=== PATIENT | female | born 1925 | race Caucasian/White ===

== ENCOUNTER 2016-08-21 17:33 | Inpatient (IN) | payer MEDICARE, BC ==
[~2016-08-21 17:33] MED LIST: AMLODIPINE BESYL5 MG PO; ASPIRIN EC81 MG PO; AVAPRO300 MG PO; CALCIUM 500 +1 EAC8 PO; CATAPRES0.2 M1 PO; CILOSTAZOL50 MG PO; CYANOCOBALAM1000 MCG PO; ELIQ PO; FISH OIL 1,2001 EAC2 PO; FISH OIL 1,2001 EAC5 PO; GENTAMICIN TOP; HYDROCODON-ACE1 EAC7 PO; KEFLEX500 MG PO; LASIX20 MG PO; LUBRICANT DRY E OP; METOPROLOL TAR100 M2 PO; MULTI VITAMIN1 EAC1 PO; REFRESH PLUS1 EACH EACH EYE; SLEEP AID25 M1 PO; TRIAMTERENE-HCT1 TAB PO; VITAMIN C1000 MG PO; ZOCOR10 MG PO
[2016-08-21] MEDS ORDERED: POTASSIUM CHLO10 ME2 PO (17:45)
[2016-08-21] MEDS ORDERED: MELATONIN1 M2 PO (17:48)
[2016-08-21 18:16] LABS: BASO % 0.5 % (0-2); BASO ABSOLUTE COUNT 0.1 tho/cmm (0.0-0.2); EOS % 0.9 % (0-7); EOSINOPHIL ABSOLUTE COUNT 0.1 tho/cmm (0.0-0.7); HCT-HEMATOCRIT 44.8 % (34.0-49.0); HGB-HEMOGLOBIN 15.6 gm/dl (12.0-15.5); IMMATURE GRANULOCYTES ABSOLUTE 0.09 tho/cmm (0-0.03); IMMATURE GRANULOCYTES PERCENT 0.6 % (0-0.3); LYMPH % 14.8 % (20-45); LYMPH ABSOLUTE COUNT 2.2 tho/cmm (0.8-4.5); MCH (MEAN CORPUSCULAR HGB) 29.6 pg (28.0-32.0); MCHC MEAN CORPUSCULAR HGB CONC 34.8 % (32.0-36.0); MEAN PLATELET VOLUME 10.4 cmc (9.4-12.4); MONO % 5.5 % (0-12); MONOCYTE ABSOLUTE COUNT 0.8 tho/cmm (0.0-1.2); NEUTROPHIL ABSOLUTE COUNT 11.8 tho/cmm (1.6-8.0); NEUTROPHIL-AUTOMATED 11.8 tho/cmm (1.6-8.0); NEUTROPHILS % 77.7 % (40-80); PLATELET COUNT 268 tho/cmm (150-450); RED BLOOD COUNT 5.27 mil/cmm (4.00-5.20); RED CELL DISTRIBUTION WIDTH 13.4 % (12.4-16.4); WHITE BLOOD COUNT 15.2 tho/cmm (4.0-10.0)
[2016-08-21 18:43] LABS: ANION GAP 12 mmol/L (0-20); BLOOD UREA NITROGEN 23 mg/dl (6-24); CALCIUM 10.3 mg/dl (8.5-10.5); CARBON DIOXIDE-VENOUS 24 mmol/L (22-32); CHLORIDE 103 mmol/l (96-110); CREATININE 1.02 mg/dl (0.50-1.10); GLUCOSE 166 mg/dL (70-110); SODIUM 135 mmol/L (135-145); eGFR VALUE FOR BLACK 56 mL/Min
[2016-08-21 18:49] LABS: POTASSIUM 4.2 mmol/L (3.7-5.1)
[2016-08-22] MEDS ORDERED: CATAPRES0.2 M1 PO (15:36)
[2016-08-22] MEDS ORDERED: LEVOTHYROXINE50 MC3 PO (15:40)
[2016-08-22] MEDS ORDERED: TORSEMIDE10 M3 PO (15:40)
[2016-08-22] MEDS ORDERED: LUBRIFRESH PM3.5 G1 EACH EYE (15:42)
[2016-08-23 06:42] LABS: BASO % 0.1 % (0-2); EOS % 0.1 % (0-7); HCT-HEMATOCRIT 31.8 % (34.0-49.0); HGB-HEMOGLOBIN 10.7 gm/dl (12.0-15.5); IMMATURE GRANULOCYTES ABSOLUTE 0.04 tho/cmm (0-0.03); IMMATURE GRANULOCYTES PERCENT 0.3 % (0-0.3); LYMPH % 3.7 % (20-45); LYMPH ABSOLUTE COUNT 0.6 tho/cmm (0.8-4.5); MCH (MEAN CORPUSCULAR HGB) 28.9 pg (28.0-32.0); MCHC MEAN CORPUSCULAR HGB CONC 33.6 % (32.0-36.0); MCV (MEAN CELL VOLUME) 85.9 fl (82.0-96.0); MONO % 5.5 % (0-12); MONOCYTE ABSOLUTE COUNT 0.8 tho/cmm (0.0-1.2); NEUTROPHIL ABSOLUTE COUNT 13.7 tho/cmm (1.6-8.0); NEUTROPHIL-AUTOMATED 13.7 tho/cmm (1.6-8.0); NEUTROPHILS % 90.3 % (40-80); PLATELET COUNT 169 tho/cmm (150-450); RED CELL DISTRIBUTION WIDTH 13.7 % (12.4-16.4); WHITE BLOOD COUNT 15.2 tho/cmm (4.0-10.0)
[2016-08-23 06:52] LABS: ANION GAP 10 mmol/L (0-20); BLOOD UREA NITROGEN 19 mg/dl (6-24); CALCIUM 9.1 mg/dl (8.5-10.5); CARBON DIOXIDE-VENOUS 28 mmol/L (22-32); CHLORIDE 104 mmol/l (96-110); CREATININE 0.94 mg/dl (0.50-1.10); GLUCOSE 143 mg/dL (70-110); POTASSIUM 4.1 mmol/L (3.7-5.1); SODIUM 138 mmol/L (135-145); eGFR VALUE FOR BLACK 62 mL/Min
[2016-08-24 05:51] LABS: BASO % 0.3 % (0-2); EOS % 1.6 % (0-7); EOSINOPHIL ABSOLUTE COUNT 0.2 tho/cmm (0.0-0.7); HCT-HEMATOCRIT 28.8 % (34.0-49.0); HGB-HEMOGLOBIN 9.7 gm/dl (12.0-15.5); IMMATURE GRANULOCYTES ABSOLUTE 0.05 tho/cmm (0-0.03); IMMATURE GRANULOCYTES PERCENT 0.4 % (0-0.3); LYMPH % 9.4 % (20-45); LYMPH ABSOLUTE COUNT 1.1 tho/cmm (0.8-4.5); MCH (MEAN CORPUSCULAR HGB) 29.1 pg (28.0-32.0); MCHC MEAN CORPUSCULAR HGB CONC 33.7 % (32.0-36.0); MCV (MEAN CELL VOLUME) 86.5 fl (82.0-96.0); MONO % 8.6 % (0-12); NEUTROPHILS % 79.7 % (40-80); PLATELET COUNT 156 tho/cmm (150-450); RED BLOOD COUNT 3.33 mil/cmm (4.00-5.20); RED CELL DISTRIBUTION WIDTH 13.9 % (12.4-16.4); WHITE BLOOD COUNT 11.3 tho/cmm (4.0-10.0)
== END 2016-08-24 13:45 | DRG 481 ==
LOC: EDMED 17:33 → 5EB 21:45 → ORE 08-22 09:44 → PACU 08-22 11:14 → 5EB 08-22 12:30
PROVIDERS: Emergency Medicine; Orthopaedic Surgery Foot and Ankle Surgery; ADMIT Hospitalist
PROC: 0QS706Z Reposition Left Upper Femur with Intramedullary Internal Fixation Device, Open Approach (ICD-10-PCS; principal; 2016-08-22)
DX: S72.141A Displaced intertrochanteric fracture of right femur, initial encounter for closed fracture (principal); D62 Acute posthemorrhagic anemia; I73.9 Peripheral vascular disease, unspecified; I10 Essential (primary) hypertension; Z79.82 Long term (current) use of aspirin; W01.0XXA Fall on same level from slipping, tripping and stumbling without subsequent striking against object, initial encounter; Y92.017 Garden or yard in single-family (private) house as the place of occurrence of the external cause; E03.9 Hypothyroidism, unspecified; Z85.42 Personal history of malignant neoplasm of other parts of uterus; R11.0 Nausea
CPT/HCPCS: C1713; J0690; J0780; J1170; J1652; J2270; J2405; J3010